=== PATIENT | female | born 1980 | race Caucasian/White ===

== ENCOUNTER 2018-09-14 19:11 | Inpatient (IN) | payer OTHER ==
[~2018-09-14] VITALS: Ht 167.6 cm; Wt 67.9 kg
[2018-09-14] MEDS ORDERED: LORazepam 2MG/ML-1ML VIAL ONE (19:46)
[2018-09-14] MEDS ORDERED: KETAMINE ONE (19:47)
[2018-09-14] MEDS ORDERED: SODIUM CHLORIDE 0.9% 1,000 ML IV ONE (20:30)
[2018-09-14] MEDS ORDERED: PHENOBARBITAL SODIUM IV ONE (20:30)
[2018-09-14] MEDS ORDERED: SODIUM CHL 0.9% IV ONE (20:30)
[2018-09-14] MEDS ORDERED: LEVETIRACETAM INJ 1,000 MG in D5W 5% 100 ML IV ONE (21:00)
[2018-09-14] MEDS ORDERED: LORazepam 2MG/ML-1ML VIAL IV ONE (21:15)
[2018-09-14] MEDS ORDERED: PHENobarbital SODIUM 130 MG/ML VL ONE (22:09)
[2018-09-14] MEDS ORDERED: PHENobarbital SODIUM 65 MG/ML VL ONE ×2 (22:11→23:49)
[2018-09-14 22:47] LABS: Urine Bacteria FEW /hpf (None Seen); Urine Blood Negative /uL (Negative); Urine Specific Gravity 1.003 (1.001-1.035); Urine WBC 1 /hpf (0 - 5)
[2018-09-14 23:01] LABS: Alcohol, Urine < 3.0 mg/dL (0-5); Amphetamine Screen, Urine NEGATIVE (NEGATIVE); Barbiturate Scree,Urine NEGATIVE (NEGATIVE); Benzodiazephine Screen, Urine POSITIVE (NEGATIVE); Cannabinoid Screen, Urine NEGATIVE (NEGATIVE); Cocaine Screen, Urine NEGATIVE (NEGATIVE); Opiate Scree,Urine POSITIVE (NEGATIVE); Phencyclidine Screen, Urine NEGATIVE (NEGATIVE)
[2018-09-15 00:23] LABS: Basophils # (auto) 0 uL; Basophils % (auto) 0.6 % (0.0-2.0); Eosinophils # (auto) 0.2 uL; Eosinophils % (auto) 3.4 % (0.0-7.0); Hematocrit 31.9 % (36.0-46.0); Hemoglobin 10.6 g/dL (12.2-16.2); Lymphocytes # (auto) 2.9 uL; Lymphocytes % (auto) 41.7 % (10.0-50.0); Mean Corpuscular Hemoglobin 33.2 pg (28.0-32.0); Mean Corpuscular Hgb Conc. 33.3 g/dL (32.0-36.0); Mean Corpuscular Volume 99.6 fL (80.0-100.0); Monocytes # (auto) 0.4 uL; Neutrophils # (auto) 3.4 uL; Neutrophils % (auto) 48.3 % (37.0-80.0); Nucleated Red Blood Cells % 0.1 %; Platelet Count (auto) 256 10^3/uL (140-450); Red Cell Distribution Width 13.9 % (11.8-14.3); White Blood Cell 7.1 10^3/uL (4.4-10.8)
[2018-09-15 00:38] LABS: Albumin 3.2 g/dL (3.4-5.0); BUN/Creatinine Ratio 6.5; Calcium 8.2 mg/dL (8.5-10.1); Potassium 3.5 mmol/L (3.5-5.1)
[2018-09-15 00:40] LABS: Bilirubin, Total 0.3 mg/dL (0.2-1.0); Total Protein 5.8 g/dL (6.4-8.2)
[2018-09-15] MEDS ORDERED: ONDANSETRON HCL 4 MG/2 ML VIAL IV PRN (01:00)
[2018-09-15] MEDS ORDERED: ACETAMINOPHEN 500 MG TAB PO PRN (01:00)
[2018-09-15] MEDS ORDERED: BACLOFEN 10 MG TAB PO PRN (01:00)
[2018-09-15] MEDS ORDERED: MORPHINE SULF INJ 2 MG/ML SYRINGE 1ML IV ONE (01:15)
[2018-09-15] MEDS ORDERED: HYDROcodone-ACET 10/325MG TAB PO ONE (01:30)
[2018-09-15 03:40] VITALS: BP 142/85
[2018-09-15] MEDS: MORPHINE SULF INJ 2 MG/ML SYRINGE 1ML IV PRN ×5 (04:25→20:13)
--- NOTE | 2018-09-15 04:31 | NUR ---
Telemetry admit from ER KAM[facility]I SAN admitted to Telemetry unit. Patient oriented to unit policies regarding patient care and visiting hours. Patient now on continuous telemetry monitoring, tele box # [id number] and telemetry reading on arrival to unit is SR. Patient placed on bedside oxygen, weighed by bedscale and encouraged to call if they need something. All questions and concerns addressed, patient verbalized understanding. Will continue to monitor.
--- NOTE | 2018-09-15 04:50 | NUR ---
[facility] SENT AT THIS TIME
[2018-09-15] MEDS ORDERED: HYDRX10T PO (05:07)
[2018-09-15] MEDS ORDERED: KEP500T PO (05:07)
[2018-09-15] MEDS ORDERED: DULO60CA PO (05:07)
[2018-09-15] MEDS ORDERED: TRAZ300T16 PO (05:07)
[2018-09-15] MEDS ORDERED: CARI-277 PO (05:07)
[2018-09-15] MEDS ORDERED: VENL37.588 PO (05:07)
[2018-09-15] MEDS ORDERED: ESCI20TA51 PO (05:07)
[2018-09-15] MEDS ORDERED: GABA-339 PO (05:07)
[2018-09-15] MEDS ORDERED: HYDR-4683 PO (05:07)
[2018-09-15] MEDS ORDERED: RISP0.2535 PO (05:07)
[2018-09-15] MEDS ORDERED: ZOLP12.52 PO (05:07)
[2018-09-15] MEDS ORDERED: ESCI10TA53 PO (05:07)
--- NOTE | 2018-09-15 07:20 | NUR ---
Opening Shift Note Assumed care of patient, patient asleep. No S/S of distress/SOB or pain. Seizure precautions in place for safety, sitter at bedside.
[2018-09-15 08:00] VITALS: BP 128/91
[2018-09-15 09:00] VITALS: BP 128/91
[2018-09-15] MEDS ORDERED: LEVETIRACETAM INJ 500 MG in D5W 5% 100 ML IV SCH (10:00)
--- NOTE | 2018-09-15 10:41 | NUR ---
Morillo catheter dc'd Order to discontinue morillo catheter. Morillo dc'd with clean technique following deflation of balloon. Patient tolerated well with no complaints of pain. Continue care.
[2018-09-15 13:00] VITALS: BP 111/64
[2018-09-15] MEDS: GABAPENTIN 300 MG CAP PO SCH ×2 (14:14→21:42)
[2018-09-15] MEDS: diphenhdrAMINE HCL 50 MG/1 ML VL IV PRN (14:32)
[2018-09-15 17:00] VITALS: BP 111/74
--- NOTE | 2018-09-15 18:25 | NUR ---
Allergic Reaction Patient states she is allergic to fish. Dinner tray with fish brought in to patient' room which patient did not eat but smelled. Patient nauseas and states she feels like tongue is swelling. Hospitalist pagenupur. Benadryl, solumedrol and breathing treatment ordered.
[2018-09-15] MEDS ORDERED: diphenhdrAMINE HCL 50 MG/1 ML VL ONE (18:34)
[2018-09-15] MEDS ORDERED: methylPREDNISolone SOD SUCC 125 MG/2 ML VL ONE (18:34)
[2018-09-15] MEDS ORDERED: methylPREDNISolone SOD SUCC 125 MG/2 ML VL IV ONE (18:45)
[2018-09-15] MEDS ORDERED: ALBUTEROL SULF 2.5 MG/0.5ML(0.5%) NEB SOLN NEB ONE (18:45)
[2018-09-15] MEDS ORDERED: diphenhdrAMINE HCL 50 MG/1 ML VL IV ONE (18:45)
[2018-09-15] MEDS ORDERED: ALBUTEROL SULF 2.5 MG/0.5ML(0.5%) NEB SOLN ONE (18:47)
--- NOTE | 2018-09-15 18:50 | NUR ---
Seizure Activity Patient with seizure activity lasting around 10 minutes. Ativan given X 2. Vital signs post seizure: BP 115/68, HR 95, 02 99, RR18. Hospitalist paged. Received call back. Instructed to notify Dr. Galloway.
--- NOTE | 2018-09-15 18:51 | NUR ---
Dr Galloway paged Awaiting call back.
[2018-09-15] MEDS: LORazepam 2MG/ML-1ML VIAL IV PRN ×2 (19:00→19:12)
--- NOTE | 2018-09-15 19:06 | NUR ---
PT ACTIVELY SEIZING. RN BEDSIDE. WILL GIVE ONE TIME NEB TX AT A LATER TIME.
[2018-09-15 21:00] VITALS: BP 113/71
[2018-09-15] MEDS ORDERED: LEVETIRACETAM 500 MG TAB PO SCH (22:00)
[2018-09-15] MEDS ORDERED: GABAPENTIN 300 MG CAP PO SCH (22:00)
[2018-09-15] MEDS: HYDROcodone-ACET 5/325MG TAB PO PRN (22:29)
[2018-09-16] MEDS: MORPHINE SULF INJ 2 MG/ML SYRINGE 1ML IV PRN ×2 (00:11→03:46)
[2018-09-16] MEDS: diphenhdrAMINE HCL 50 MG/1 ML VL IV PRN (00:24)
[2018-09-16] MEDS: HYDROcodone-ACET 5/325MG TAB PO PRN (03:19)
--- NOTE | 2018-09-16 04:31 | NUR ---
PATIENT WENT WALKING ON UNIT TRYING TO GET DOWNSTAIRS. SHE SATED THAT SHE WAS GOING TO HAVE A FRIEND BRING HER SOME PILLS. GAVE DESCRIPTION TO SECURITY THAT SHE IS NOT TO BE DOWNSTAIRS AND TO BE ON LOOKOUT.
--- NOTE | 2018-09-16 04:40 | NUR ---
PATIENT WENT AMA. REFUSED TO SIGN PAPERWORK.
--- NOTE | 2018-09-16 04:41 | NUR ---
PATIENT TOOK ALL BELONGINGS WITH HER AND SAID HER MOTHER IS GOING TO PICK HER UP.
--- NOTE | 2018-09-16 04:51 | NUR ---
INCIDENT REPORT COMPLETED AT THIS TIME.
[2018-09-16] MEDS ORDERED: ESCI5TAB PO (05:41)
[2018-09-16] MEDS ORDERED: BUSP10TA90 PO (05:41)
[2018-09-16] MEDS ORDERED: ZOLP10TA PO (05:41)
== END 2018-09-16 04:40 | disposition left against medical advice (07) | DRG 101 ==
LOC: EDBD 19:11 → ER 19:14 → TELE 09-15 01:27 → TELE-CENTR 09-15 03:44 → CENTRAL 09-16 00:54
PROVIDERS: ADMIT Nurse Practitioner Family; ATTEND Internal Medicine
DX: G40.201 Localization-related (focal) (partial) symptomatic epilepsy and epileptic syndromes with complex partial seizures, not intractable, with status epilepticus (principal); E44.1 Mild protein-calorie malnutrition; K82.1 Hydrops of gallbladder; D27.1 Benign neoplasm of left ovary; D64.9 Anemia, unspecified; K59.00 Constipation, unspecified; M40.50 Lordosis, unspecified, site unspecified; Z79.899 Other long term (current) drug therapy; Z91.013 Allergy to seafood; Z68.24 Body mass index [BMI] 24.0-24.9, adult
CPT/HCPCS: 36415; 70450; 72125; 74176; 80053; 80307; 81001; 82542; 84484; 84702; 85025; 87081; 96361; 96365; 96375; G0378; J7060

== ENCOUNTER 2018-09-16 05:24 | Inpatient (IN) | payer OTHER ==
[~2018-09-16] VITALS: Ht 167.6 cm; Wt 68.0 kg
[~2018-09-16 05:24] MED LIST: CARI-277 PO; DULO60CA PO; ESCI10TA53 PO; ESCI20TA51 PO; GABA-339 PO; HYDR-4683 PO; HYDRX10T PO; KEP500T PO; RISP0.2535 PO; TRAZ300T16 PO; VENL37.588 PO; ZOLP12.52 PO
[2018-09-16] MEDS ORDERED: LORazepam 2MG/ML-1ML VIAL IV ONE ×3 (05:30→07:45)
[2018-09-16] MEDS ORDERED: ZOLP10TA PO (05:41)
[2018-09-16] MEDS ORDERED: ESCI5TAB PO (05:41)
[2018-09-16] MEDS ORDERED: BUSP10TA90 PO (05:41)
[2018-09-16 07:54] LABS: Basophils # (auto) 0.1 uL; Basophils % (auto) 1.2 % (0.0-2.0); Eosinophils # (auto) 0 uL; Eosinophils % (auto) 0.1 % (0.0-7.0); Hematocrit 32.4 % (36.0-46.0); Hemoglobin 10.7 g/dL (12.2-16.2); Lymphocytes # (auto) 0.9 uL; Lymphocytes % (auto) 10.5 % (10.0-50.0); Mean Corpuscular Hemoglobin 32.8 pg (28.0-32.0); Mean Corpuscular Hgb Conc. 33.1 g/dL (32.0-36.0); Monocytes # (auto) 0.4 uL; Monocytes % (auto) 4.5 % (0.0-12.0); Neutrophils # (auto) 7.3 uL; Neutrophils % (auto) 83.7 % (37.0-80.0); Nucleated Red Blood Cells % 0.1 %; Platelet Count (auto) 277 10^3/uL (140-450); Red Blood Cells 3.27 10^6/uL (4.0-5.20); Red Cell Distribution Width 13.7 % (11.8-14.3); White Blood Cell 8.7 10^3/uL (4.4-10.8)
[2018-09-16 08:04] LABS: INR 0.96 (0.9-1.15)
[2018-09-16 08:13] LABS: Albumin 3.2 g/dL (3.4-5.0); Calcium 7.9 mg/dL (8.5-10.1); Potassium 3.6 mmol/L (3.5-5.1)
[2018-09-16 08:15] LABS: Bilirubin, Total 0.1 mg/dL (0.2-1.0); Total Protein 6.1 g/dL (6.4-8.2)
[2018-09-16] MEDS ORDERED: BACLOFEN 10 MG TAB PO PRN (08:45)
[2018-09-16] MEDS ORDERED: NITROGLYCERIN 0.4 MG SL TAB SL PRN (08:45)
[2018-09-16] MEDS ORDERED: HYDROcodone-ACET 5/325MG TAB PO PRN (08:45)
[2018-09-16] MEDS ORDERED: ACETAMINOPHEN 500 MG TAB PO PRN (08:45)
[2018-09-16] MEDS ORDERED: IPRATROPIUM BROM 0.5 MG/2.5ML INH SOL NEB PRN (08:45)
[2018-09-16] MEDS ORDERED: ALBUTEROL SULF 2.5 MG/0.5ML(0.5%) NEB SOLN NEB PRN (08:45)
[2018-09-16] MEDS ORDERED: ONDANSETRON HCL 4 MG/2 ML VIAL IV PRN (08:45)
[2018-09-16] MEDS ORDERED: MORPHINE SULF INJ 2 MG/ML SYRINGE 1ML IV PRN ×3 (08:45→13:15)
--- NOTE | 2018-09-16 08:52 | NUR ---
Respiratory note: ASSESSED PT FOR PRN TX PT WAS ASLEEP NO RESP DISTRESS NOTED. HR 68,RR16,SPO2 98% ON ROOM AIR. BS ARE CLEAR AND DIMINISHED. NO INDICATION FOR TX AT THIS TIME. PT KNOWS TO HAVE RT PAGED IF TX IS NEEDED.
[2018-09-16 09:35] VITALS: BP 106/31
[2018-09-16] MEDS ORDERED: LEVETIRACETAM INJ 500 MG in D5W 5% 100 ML IV SCH (10:00)
[2018-09-16] MEDS ORDERED: CITALOPRAM HYDROBR 20 MG TAB PO SCH (10:00)
[2018-09-16] MEDS: LEVETIRACETAM 500 MG TAB PO SCH ×2 (11:20→21:20)
[2018-09-16] MEDS: FAMOTIDINE 20 MG TAB PO SCH (11:20)
[2018-09-16] MEDS: GABAPENTIN 300 MG CAP PO SCH ×3 (12:07→21:13)
[2018-09-16] MEDS ORDERED: MORPHINE SULFATE 4 MG/ML SYR/VIAL IV ONE (13:15)
[2018-09-16] MEDS ORDERED: CITALOPRAM HYDROBR 20 MG TAB PO ONE (13:15)
[2018-09-16 13:30] LABS: Urine Bacteria MANY /hpf (None Seen); Urine Blood TRACE /uL (Negative); Urine Mucus FEW (None Seen); Urine Specific Gravity 1.015 (1.001-1.035); Urine WBC 17 /hpf (0 - 5)
[2018-09-16 13:40] LABS: Amphetamine Screen, Urine NEGATIVE (NEGATIVE); Barbiturate Scree,Urine POSITIVE (NEGATIVE); Benzodiazephine Screen, Urine POSITIVE (NEGATIVE); Cannabinoid Screen, Urine NEGATIVE (NEGATIVE); Cocaine Screen, Urine NEGATIVE (NEGATIVE); Opiate Scree,Urine POSITIVE (NEGATIVE); Phencyclidine Screen, Urine NEGATIVE (NEGATIVE)
[2018-09-16] MEDS: LORazepam 0.5 MG TAB PO PRN ×2 (14:04→22:33)
[2018-09-16 14:27] LABS: Alcohol, Urine < 3.0 mg/dL (0-5)
--- NOTE | 2018-09-16 15:55 | NUR ---
Telemetry admit from ER [facility] admitted to Telemetry unit after SBAR received FROM [facility] [place]. Patient oriented to MALISSA PATEL RN, unit, room, bed, and unit policies regarding patient care and visiting hours.
[2018-09-16 16:10] VITALS: BP 113/73
--- NOTE | 2018-09-16 16:15 | NUR ---
Patient walking in the room, on her civilian clothes, refused to wear the hospital gown, stated it makes her more anxious. Two family members at bedside. Sitter at bedside.
--- NOTE | 2018-09-16 16:17 | NUR ---
Received a call from Shelly/IDRIS Baird that patient is looking for black pajamas the she left at the ER. Family member to go to ER to look for the pajamas.
[2018-09-16 16:57] VITALS: BP 113/73
--- NOTE | 2018-09-16 17:40 | NUR ---
Patient insisted that she gets her Morphine Sulf. Explained to patient that she received [place] 5/325 at 5:09 pm today.
--- NOTE | 2018-09-16 18:08 | NUR ---
Patient is upset, angry that she will get her Morphine Sulf at 7:00 pm instead of 6:00 pm. She expected to get it at 6:00 pm, she insisted that she received Morphine at ER in the afternoon. Explained to patient that it's in the protocol as per Pharmacy that the next Morphine dose will be at 7:00 pm. Patient went out of the room angry, went to the Nurse Station, looking for the Charge Nurse. Patient on sitter. Called Security.
--- NOTE | 2018-09-16 18:10 | NUR ---
Called Pharmacy to clarify the protocol on patient's order for Morphine Sulf. Pharmacist said they will change the schedule of Morphine Sulf 2 mg.
--- NOTE | 2018-09-16 18:10 | NUR ---
Called Pharmacy. As per eMAR, patient received Morphine Sulf IV 1mg at 1207 pm today and at 1310 pm today another dose of Morphine Sulf IV 1mg at the ER.
--- NOTE | 2018-09-16 18:12 | NUR ---
Security arrived. Charge Nurses Shoshana and Geovanna came over. Patient is on the hallway, angry why she can't get the Morphine Sulf at 6:00 pm. I explained to the patient that I already called the Pharmacy to clarify the order for Morphine Sulf, and Pharmacist said that she can get the Morphine Sulf IVP now. Asked the patient to go back to the room.
[2018-09-16] MEDS: MORPHINE SULF INJ 2 MG/ML SYRINGE 1ML IV PRN (18:15)
--- NOTE | 2018-09-16 18:15 | NUR ---
Morphine Sulf IVP 2mg given for pain as ordered. Patient stated she gets anxious she wants her Ativan as well. Charge Nurse Shoshana explained to patient she's not due for Ativan at this time. Sitter at bedside.
--- NOTE | 2018-09-16 19:28 | NUR ---
Opening Shift Note Assumed care of patient, awake and alert. No S/S of distress/SOB c/o back pain. Instructed on POC and to call for assist PRN, will continue to monitor for changes Q1hr and PRN.Medicated with baclofen 10mg.p.o. as needed. And given the copy of the home medicine to Dr. Galloway for med.rec.
[2018-09-16] MEDS: HYDROcodone-ACET 5/325MG TAB PO PRN ×2 (21:03→21:51)
[2018-09-16] MEDS: CARISOPRODOL 350 MG TAB PO SCH (21:13)
[2018-09-16] MEDS: busPIRone HCL 10 MG TAB PO SCH (21:14)
[2018-09-16] MEDS: traZODone HCL 50 MG TAB PO SCH (21:21)
[2018-09-16] MEDS ORDERED: TEMAZEPAM 15 MG CAP PO ONE (21:45)
--- NOTE | 2018-09-16 21:46 | NUR ---
Kianna Castro for sleeping pill and norco to increase the dose, and said no increase dose of norco and give temazepam 15mg. p.o x one.
[2018-09-16 22:00] VITALS: BP 135/70
--- NOTE | 2018-09-16 23:16 | NUR ---
Called tele.psyche phone no. and gave information for consult, they will call back.
[2018-09-17] MEDS: MORPHINE SULF INJ 2 MG/ML SYRINGE 1ML IV PRN ×4 (00:02→20:36)
--- NOTE | 2018-09-17 02:02 | NUR ---
Seen by the tele psychiatrist with recommendation of discontinue oral ativan, reduced citalopram to 20mg.p.o daily, reduced Gabapentin to 300mg.p.o T.I.D, Klonopin 1mg.p. nightly at 9p.m.
[2018-09-17 05:00] VITALS: BP 93/54
[2018-09-17] MEDS: GABAPENTIN 300 MG CAP PO SCH ×3 (05:58→21:14)
--- NOTE | 2018-09-17 07:34 | NUR ---
Report given to Hillary Dubon to assume care, and to tell hospitalist for stool softener,and ambien sleeping pill 12.5 mg. hs.
--- NOTE | 2018-09-17 07:40 | NUR ---
Opening patient awake in bed, asking for pain medication per the patients statement she had back surgery not here and has pain in her back. Her current bp is 93/54 will recheck blood pressure prior to administering any narcotic medications. CT brain negative md baker on board. tele/psych consult completed and report is in hard chard per noc nurse tox screen positive for opiates/barbiturates sitter at bedside will continue to monitor this patient and f/u with morning assessment
--- NOTE | 2018-09-17 08:18 | NUR ---
nurse note per patient, she states she had back surgery last , she states stitches are still on her back. Assessed the back area, saw a scar no stitches. Will continue to monitor this patient.
--- NOTE | 2018-09-17 08:52 | NUR ---
md olivia baker states to put in all new orders, per the tele psych report and do all changes under his order will follow md's orders now and change all as applicable
[2018-09-17 09:00] VITALS: BP 115/58
[2018-09-17] MEDS: FAMOTIDINE 20 MG TAB PO SCH (09:22)
[2018-09-17] MEDS: VENLAFAXINE HCL 37.5mg XR cap PO SCH (09:22)
[2018-09-17] MEDS: busPIRone HCL 10 MG TAB PO SCH ×2 (09:22→21:13)
[2018-09-17] MEDS: CITALOPRAM HYDROBR 20 MG TAB PO SCH (09:23)
[2018-09-17] MEDS: hydrOXYzine HCL 10 MG TAB PO SCH (09:24)
[2018-09-17] MEDS: HYDROcodone-ACET 5/325MG TAB PO PRN ×2 (09:24→16:28)
[2018-09-17] MEDS ORDERED: CITALOPRAM HYDROBR 20 MG TAB PO SCH (10:00)
[2018-09-17] MEDS: DULoxetine HCL 30 MG CAP PO SCH (10:00)
[2018-09-17] MEDS: CARISOPRODOL 350 MG TAB PO SCH ×2 (12:23→21:14)
[2018-09-17] MEDS: LEVETIRACETAM 500 MG TAB PO SCH ×2 (12:23→21:14)
--- NOTE | 2018-09-17 15:55 | NUR ---
RT NOTE: PT. ASSESSED FOR PRN BREATHING TX. NO TX. NEEDED. NO S/S OF RESPIRATORY DISTRESS NOTED. PT. SLEEPING.
[2018-09-17 16:43] VITALS: BP 112/72
--- NOTE | 2018-09-17 18:00 | NUR ---
nurse note patient states inability to urinate, she states "i have nerve damage" "I cath myself daily" will conduct bladder scanner, and report to sandblaster stone hospitalist
--- NOTE | 2018-09-17 18:12 | NUR ---
bladder scanner over 900 mL in bladder, paging photocomposition keyboard operator hospitalist amina willett
--- NOTE | 2018-09-17 18:20 | NUR ---
neil note new orders per tamie, insert morillo catheter
--- NOTE | 2018-09-17 19:30 | NUR ---
assumed care, pt. awake, relatives at bedside, no c/o pain, no sob.
[2018-09-17] MEDS: traZODone HCL 50 MG TAB PO SCH (21:14)
[2018-09-17 21:33] VITALS: BP 114/71
[2018-09-18] MEDS: MORPHINE SULF INJ 2 MG/ML SYRINGE 1ML IV PRN ×2 (02:24→09:36)
--- NOTE | 2018-09-18 04:55 | NUR ---
pt. had a seizure, v/s 120/66, p- 77, ativan given iv as ordered at 0459, pt. slows down, pt. awake, can tell her name.
[2018-09-18] MEDS: LORazepam 2MG/ML-1ML VIAL IV PRN ×7 (04:59→20:50)
--- NOTE | 2018-09-18 05:10 | NUR ---
at 0510, pt. had a seizure continously, ativan given iv as ordered, bp- 149/85, p-74, to keep monitor.
--- NOTE | 2018-09-18 05:10 | NUR ---
called code assist, code assist team came.
--- NOTE | 2018-09-18 05:15 | NUR ---
pt. continously had seizure, bp -101/73, p- 76, at 0515 ativan given iv as ordered, code assist team at bedside.
[2018-09-18] MEDS ORDERED: PHENobarbital SODIUM 65 MG/ML VL ONE (05:19)
--- NOTE | 2018-09-18 05:25 | NUR ---
pt. no seizure at this time, bp -97/53, p- 74, sats- 100%, to keep monitor.
[2018-09-18] MEDS ORDERED: LEVETIRACETAM INJ 1,000 MG in D5W 5% 100 ML IV ONE ×3 (05:30→21:15)
[2018-09-18] MEDS ORDERED: LEVETIRACETAM 500 MG/5ML INJ IV ONE (05:30)
--- NOTE | 2018-09-18 05:42 | NUR ---
no seizure at this time, keppra given iv as ordered, to keep monitor.
[2018-09-18 05:51] VITALS: BP 106/53
--- NOTE | 2018-09-18 05:55 | NUR ---
pt. bp- 79/44, r-12, p-66, sats- 100%, no seizure at this time, paged hospitalist, waiting to call back.
[2018-09-18] MEDS: GABAPENTIN 300 MG CAP PO SCH ×3 (06:00→22:00)
--- NOTE | 2018-09-18 06:19 | NUR ---
paged hospitalist for second time, bp- 76/36, p-68, sats-100%, no seizure noted, waiting to call back.
--- NOTE | 2018-09-18 06:27 | NUR ---
0503 pt. had seizure, ativan given iv as ordered, at 0505, pt. seizure slow down, bp- 106/66, p-86, to keep monitor.
--- NOTE | 2018-09-18 06:38 | NUR ---
pt. no seizure at this time, bp- 80/92, p- 66, sats at 100%, to keep monitor. Addendum: 09/18/18 at 0656 by Lois James RN pt. bp -[phone]
--- NOTE | 2018-09-18 06:46 | NUR ---
still waiting for hospitalist to call back.
--- NOTE | 2018-09-18 06:53 | NUR ---
hospitalist called back, made ordered and carried out.
[2018-09-18] MEDS ORDERED: ALBUMIN 5% 250 ML IV ONE ×2 (06:58→07:00)
--- NOTE | 2018-09-18 07:08 | NUR ---
pt. bp- 86/50, p-65, r-14, sats-99%, no seizure at this time, to keep monitor.
--- NOTE | 2018-09-18 07:30 | NUR ---
Opening Shift Note Assuming care of patient at this time. Patient is resting with eyes closed. Vital signs are stable. Patient does not arouse to name or shaking. However, a sternal rub does awake patient for a brief time to state name and date of . Patient, then, closes eyes again and does not respond again until sternal rub is performed. Bed is locked and lowered with side rails up x2. Seizure precautions are in place. Patient does not appear to be in any pain. Patient shows no signs or symptoms of distress or shortness of breath. Sitter in the room for safety. Will continue to round hourly and as needed.
[2018-09-18 08:50] VITALS: BP 92/51
[2018-09-18] MEDS: DULoxetine HCL 30 MG CAP PO SCH (09:25)
[2018-09-18] MEDS: CITALOPRAM HYDROBR 20 MG TAB PO SCH (09:25)
[2018-09-18] MEDS: VENLAFAXINE HCL 37.5mg XR cap PO SCH (09:25)
[2018-09-18] MEDS: FAMOTIDINE 20 MG TAB PO SCH (09:25)
[2018-09-18] MEDS: CARISOPRODOL 350 MG TAB PO SCH (09:26)
[2018-09-18] MEDS: LEVETIRACETAM 500 MG TAB PO SCH (09:26)
[2018-09-18] MEDS: busPIRone HCL 10 MG TAB PO SCH (09:26)
[2018-09-18] MEDS: hydrOXYzine HCL 10 MG TAB PO SCH (09:27)
[2018-09-18 09:39] VITALS: BP 106/75
--- NOTE | 2018-09-18 10:00 | NUR ---
Patient complaining of pain Patient has called my phone and alerted sitter that she is having pain. Patient is now awake and responsive. Patient states that she is having some pain to her back, where "my surgery was." Will check vital signs and medicate per doctor's orders.
--- NOTE | 2018-09-18 10:17 | NUR ---
I faxed higher level of care order to [facility], and [facility]-I called [facility] and they have no beds available.
--- NOTE | 2018-09-18 10:42 | NUR ---
I received a call from Deena at [facility] transfer center [phone], she received the packet and will present it to her MD-I provided her with contact information for both Dr. Galloway and the nurse's station.
[2018-09-18 11:23] LABS: Basophils # (auto) 0 uL; Basophils % (auto) 0.3 % (0.0-2.0); Eosinophils # (auto) 0.1 uL; Eosinophils % (auto) 1.5 % (0.0-7.0); Hematocrit 32.1 % (36.0-46.0); Hemoglobin 10.6 g/dL (12.2-16.2); Lymphocytes # (auto) 1.2 uL; Lymphocytes % (auto) 12.2 % (10.0-50.0); Mean Corpuscular Hemoglobin 32.8 pg (28.0-32.0); Mean Corpuscular Volume 99.5 fL (80.0-100.0); Monocytes # (auto) 0.5 uL; Monocytes % (auto) 5.2 % (0.0-12.0); Neutrophils # (auto) 7.9 uL; Neutrophils % (auto) 80.8 % (37.0-80.0); Platelet Count (auto) 239 10^3/uL (140-450); Red Blood Cells 3.22 10^6/uL (4.0-5.20); White Blood Cell 9.8 10^3/uL (4.4-10.8)
[2018-09-18 11:45] LABS: Calcium 8.4 mg/dL (8.5-10.1); Potassium 3.3 mmol/L (3.5-5.1)
[2018-09-18 11:49] LABS: BUN/Creatinine Ratio 6.3; Magnesium 2.1 mg/dL (1.6-2.6)
--- NOTE | 2018-09-18 12:45 | NUR ---
I received a call from EDMUNDO at the [facility] transfer center, he said their neurologist has accepted this patient, they are just waiting for a bed assignment.
[2018-09-18 13:00] VITALS: BP 107/65
[2018-09-18] MEDS ORDERED: cefTRIAXone 1GM/50ML D5W 50 ML IV ONE (13:30)
[2018-09-18] MEDS ORDERED: POTASSIUM CHL 20 Meq TABLET PO ONE (13:30)
[2018-09-18] MEDS: HYDROcodone-ACET 5/325MG TAB PO PRN ×2 (14:20→19:22)
--- NOTE | 2018-09-18 15:51 | NUR ---
I called [facility] [phone] ext [phone] to ask for authorization for transportation to higher level of care, left message-awaiting return call.
--- NOTE | 2018-09-18 16:09 | NUR ---
I called [facility] and spoke with Alisha-placed patient on will call pending transfer to [facility].
[2018-09-18 17:00] VITALS: BP 108/61
--- NOTE | 2018-09-18 19:00 | NUR ---
Respiratory note: PT ASSESSED FOR PRN MED NEB TX. HR 72, RR 18, SPO2 98% ON NRB, BS CLEAR T/O. NO SIGNS OF ANY RESPIRATORY DISTRESS NOTED. RT NAME AND PAGER# LEFT ON WHITEBOARD IF TX IS NEEDED. RN AWARE.
--- NOTE | 2018-09-18 19:07 | NUR ---
Closing Note Patient is resting in bed. Friend at bedside. Patient shows no signs and symptoms of distress or shortness of breath. Patient is aware of pending transfer. Will endorse care to the hvac sheet metal installer RN.
--- NOTE | 2018-09-18 19:20 | NUR ---
ASSUMED CARE, PT. AWAKE, NO SEIZURE AT THIS TIME, RELATIVES AT BEDSIDE, C/O PAIN, NORCO GIVEN ORDERED, NO SOB.
--- NOTE | 2018-09-18 20:30 | NUR ---
pp. having a seizure, ativan given iv as ordered, v/s,-bp-122/77, p-84, sats at 100% non-rebreather mask, to keep monitor.
--- NOTE | 2018-09-18 20:40 | NUR ---
pt. continously having a seizure, ativan given iv as ordered, v/s- 56/33, p-115, sats- 100%, to keep monitor.
--- NOTE | 2018-09-18 20:45 | NUR ---
pt. still having seizure, called code assist, code assist team arrived.
--- NOTE | 2018-09-18 20:50 | NUR ---
at 2049 pt. still having a seizure, ativan given iv as ordered, , v/s- 113/66, p-88, sats-100%, to keep monitor.
--- NOTE | 2018-09-18 21:05 | NUR ---
at 2104, keppra given iv as ordered, pt. not having seizure at this time, pt. transfer to [facility].
[2018-09-18 21:15] VITALS: BP 113/70
--- NOTE | 2018-09-18 21:15 | NUR ---
[id number] received Pt; Pt transferred by bed with groundwater monitoring technician. On NRB 15LPM, drowsy, arousal to voice, pupils 5mm brisk both eyes. Breathing even and nonlabored, no s/s of distress. 20G IV on left FA infusing Keppra. Bed in low position, call lights within reach, all alarms are audible, fall and safety precaution in place.
[2018-09-18] MEDS: traZODone HCL 50 MG TAB PO SCH (22:00)
--- NOTE | 2018-09-18 23:00 | NUR ---
Received Bed assignment from [facility], [address], room 7 bed 2. Accepting , DR. Norma Castellanos. Zaynab receiving RN.
--- NOTE | 2018-09-18 23:12 | NUR ---
Unable to weigh. Addendum: 09/18/18 at 2313 by Sarah Beth Saldana RN Amended: Links added.
--- NOTE | 2018-09-18 23:30 | NUR ---
Transfer arranged with [facility] done, ETA at 01.00am 09/19/18.
--- NOTE | 2018-09-18 23:40 | NUR ---
Contacted Pt's mother about the transfer and details. Family acknowledged.
--- NOTE | 2018-09-18 23:50 | NUR ---
Report given to Zaynab ALVES at [facility].
[2018-09-19] VITALS: BP 92/70
--- NOTE | 2018-09-19 | NUR ---
Condition update Pt woke up by self, awake and alert, smiled. Breathing even and nonlabored. C/O back pain 10/22 and requested for [place], will administer per order. Notified Pt about the transfer and bed. Pt acknowledged and agreed. Pt signed transfer consent. Continue care.
[2018-09-19] MEDS: HYDROcodone-ACET 5/325MG TAB PO PRN (00:27)
--- NOTE | 2018-09-19 01:10 | NUR ---
[facility] at bedside. Report given. Pt's belonging are with Pt including 2 phones. Pt's condition stable, awake and alert, no seizure, no s/s of distress. 01.20am Pt moved to [facility] by self. Condition stable. Pt left at 01.25am with [facility] team. Addendum: 09/19/18 at 0135 by Sarah Beth Saldana RN Discharge packets with [facility] team.
[2018-09-19 04:05] VITALS: BP 113/68
[2018-09-19] MEDS ORDERED: cefTRIAXone 1GM/50ML D5W 50 ML IV SCH (09:00)
[2018-09-19] MEDS ORDERED: LEVETIRACETAM 500 MG TAB PO SCH (10:00)
== END 2018-09-19 01:20 | disposition short-term general hospital (02) | DRG 101 ==
LOC: ER 05:24 → TELE 08:44 → TELE-WESTW 16:35 → DOU IN ICU 09-18 21:15
PROVIDERS: ADMIT Nurse Practitioner Acute Care; ATTEND Internal Medicine
DX: G40.201 Localization-related (focal) (partial) symptomatic epilepsy and epileptic syndromes with complex partial seizures, not intractable, with status epilepticus (principal); E44.1 Mild protein-calorie malnutrition; N39.0 Urinary tract infection, site not specified; D64.9 Anemia, unspecified; F41.9 Anxiety disorder, unspecified; F32.9 Major depressive disorder, single episode, unspecified; B95.2 Enterococcus as the cause of diseases classified elsewhere; F41.0 Panic disorder [episodic paroxysmal anxiety]; G89.29 Other chronic pain; M54.5 Low back pain; Z79.899 Other long term (current) drug therapy; Z91.19 Patient's noncompliance with other medical treatment and regimen; Z91.013 Allergy to seafood; Z68.24 Body mass index [BMI] 24.0-24.9, adult
CPT/HCPCS: 36415; 70450; 80048; 80053; 80307; 81001; 82962; 83735; 85025; 85610; 85730; 87086; 87088; 87186; 94640; 96374; 96375; 96376; G0378; J0696; J7060